=== PATIENT | male | born 1985 | race Asian ===

== ENCOUNTER 2023-12-10 23:52 | Inpatient (IN) | payer MEDICAID ==
[~2023-12-10] VITALS: Ht 177.8 cm; Wt 116.6 kg
[2023-12-10 20:00] VITALS: BP 125/68; TEMP 98.1; O2SAT 95
[2023-12-11] VITALS (8 sets, daily range): BP systolic 117–185; BP diastolic 102–132; TEMP 97.6–98.7; O2SAT 96–100
[2023-12-11] MEDS ORDERED: ONDANSETRON HCL/PF 4 MG/2 ML VIAL IVP PRN (02:30)
[2023-12-11] MEDS ORDERED: MAGNESIUM HYDROXIDE 30 ML UDC PO PRN (02:30)
[2023-12-11] MEDS ORDERED: MAG HYDROX/AL HYDROX/SIMETH 30 ML UDC PO PRN (02:30)
[2023-12-11] MEDS: NICOTINE PATCH (21MG) 21 MG PATCH.TD24 TD SCH (04:29)
[2023-12-11 06:53] LABS: INR 1.18 (0.91-1.10); PARTIAL THROMBOPLASTIN TIME 27.5 SEC (24.3-34.3); PROTHROMBIN TIME 12.4 SECS (9.2-11.1)
[2023-12-11 06:54] LABS: BASOPHILS # (AUTO) 0.2 K/uL (0.0-0.2); BASOPHILS % (AUTO) 2.2 % (0.0-2.0); EOSINOPHILS # (AUTO) 0.3 K/uL (0.0-0.7); EOSINOPHILS % (AUTO) 2.9 % (0.0-6.0); HEMATOCRIT 42 % (39-51); LYMPHOCYTES # (AUTO) 2.6 K/uL (0.8-4.8); LYMPHOCYTES % (AUTO) 26.7 % (20.0-44.0); MEAN CORPUSCULAR HEMOGLOBIN 31 PG (26.0-33.0); MEAN CORPUSCULAR HGB CONC 33 g/dl (31.0-36.0); MEAN CORPUSCULAR VOLUME 95 fL (80-96); MONOCYTES # (AUTO) 0.9 K/uL (0.1-1.30); MONOCYTES % (AUTO) 8.9 % (2.0-12.0); NEUTROPHILS # (AUTO) 5.7 K/uL (1.8-8.9); NEUTROPHILS % (AUTO) 59.3 % (43.0-81.0); PLATELET COUNT (AUTO) 281 K/uL (150-450); RED BLOOD CELL COUNT(AUTO) 4.46 MIL/uL (4.5-6.0); RED CELL DISTRIBUTION WIDTH 12.8 % (11.5-15.0); WHITE BLOOD COUNT (AUTO) 9.7 K/uL (4.3-11.0)
[2023-12-11 07:31] LABS: ALANINE AMINOTRANSFERASE 34 U/L (12-78); ALKALINE PHOSPHATASE 73 U/L (46-116); ASPARTATE AMINOTRANSFERASE 22 U/L (15-37); CALCIUM, SERUM 9.6 mg/dL (8.5-10.1); CARBON DIOXIDE 27 mmol/L (21-32); CHLORIDE 105 mmol/L (98-107); CREATININE 1.3 mg/dL (0.6-1.3); GLUCOSE 115 mg/dL (74-106); POTASSIUM 3.1 mmol/L (3.5-5.1); SODIUM SERUM 141 mmol/L (136-145); UREA NITROGEN, BLOOD 17 mg/dL (7-18)
[2023-12-11] MEDS: SPIRONOLACTONE 25 MG TABLET PO SCH (09:12)
[2023-12-11] MEDS: PANTOPRAZOLE 40 MG VIAL IV SCH (09:12)
[2023-12-11] MEDS: FUROSEMIDE 40 MG/4 ML VIAL IV SCH (09:12)
[2023-12-11] MEDS: POTASSIUM CHLORIDE 20 MEQ TAB.PRT.SR PO SCH (09:13)
[2023-12-11] MEDS: METOPROLOL TARTRATE 50 MG TABLET PO SCH (09:14)
[2023-12-11] MEDS: AMLODIPINE BESYLATE 10 MG TABLET PO SCH (09:14)
[2023-12-11] MEDS ORDERED: Z GUARD REMEDY 4 OZ OINT TP PRN (10:00)
[2023-12-11] MEDS: ZOLPIDEM TARTRATE 5 MG TABLET PO PRN (21:31)
[2023-12-12] VITALS (35 sets, daily range): BP systolic 101–163; BP diastolic 54–139; TEMP 97.5–98.9; O2SAT 91–100
[2023-12-12] MEDS: ALBUTEROL FS 2.5 MG/0.5 ML VIAL.NEB IH PRN (00:23)
[2023-12-12] MEDS: LORAZEPAM 0.5 MG TABLET PO ONE (03:11)
[2023-12-12 07:43] LABS: ABG BASE EXCESS -1.2 mmol/L (-2.0-3.0); ABG OXYGEN SATURATION 87.5 % (94.0-98.0); ABG PCO2 38.9 mmHg (35.0-48.0); ABG PH 7.397 (7.350-7.450); ABG PO2 56.1 mmHg (83.0-108.0); ABG TOTAL HEMOGLOBIN 16.4 G/dL (13.5-17.5); COHb 1.1 % (0.5-1.5); MetHb 0.2 % (0.0-1.5); O2Hb 86.4 % (94.0-97.0); SITE, ABG LEFT RADIAL
[2023-12-12] MEDS ORDERED: POTASSIUM CHLORIDE 20 MEQ TAB.PRT.SR PO SCH (09:00)
[2023-12-12 09:05] LABS: BASOPHILS # (AUTO) 0.1 K/uL (0.0-0.2); BASOPHILS % (AUTO) 0.7 % (0.0-2.0); EOSINOPHILS % (AUTO) 0.1 % (0.0-6.0); HEMATOCRIT 49 % (39-51); HEMOGLOBIN 15.6 g/dL (13.5-17.5); LYMPHOCYTES # (AUTO) 1.6 K/uL (0.8-4.8); LYMPHOCYTES % (AUTO) 10.7 % (20.0-44.0); MEAN CORPUSCULAR HEMOGLOBIN 31 PG (26.0-33.0); MEAN CORPUSCULAR HGB CONC 32 g/dl (31.0-36.0); MEAN CORPUSCULAR VOLUME 96 fL (80-96); MONOCYTES # (AUTO) 1.5 K/uL (0.1-1.30); MONOCYTES % (AUTO) 9.9 % (2.0-12.0); NEUTROPHILS # (AUTO) 11.5 K/uL (1.8-8.9); NEUTROPHILS % (AUTO) 78.6 % (43.0-81.0); PLATELET COUNT (AUTO) 246 K/uL (150-450); RED BLOOD CELL COUNT(AUTO) 5.05 MIL/uL (4.5-6.0); RED CELL DISTRIBUTION WIDTH 13.4 % (11.5-15.0); WHITE BLOOD COUNT (AUTO) 14.6 K/uL (4.3-11.0)
[2023-12-12 09:18] LABS: BILIRUBIN,TOTAL 1.6 mg/dL (0.2-1.0); CALCIUM, SERUM 9.2 mg/dL (8.5-10.1); CREATININE 1.8 mg/dL (0.6-1.3); MAGNESIUM 1.9 mg/dL (1.8-2.4); PHOSPHORUS 6.1 mg/dL (2.5-4.9); TOTAL PROTEIN, SERUM 7.9 g/dL (6.4-8.2)
[2023-12-12] MEDS: FUROSEMIDE 40 MG/4 ML VIAL IV SCH (10:10)
[2023-12-12] MEDS: CLONIDINE HCL 0.1MG/24H PTWK 1 EA PATCH TD SCH (12:46)
[2023-12-12] MEDS: VALSARTAN 80 MG TABLET PO SCH (13:00)
[2023-12-12] MEDS: PANTOPRAZOLE 40 MG TABLET.DR PO SCH (13:00)
[2023-12-12 15:36] LABS: ALBUMIN 3.9 g/dL (3.4-5.0); BILIRUBIN,TOTAL 1.6 mg/dL (0.2-1.0); CALCIUM, SERUM 8.9 mg/dL (8.5-10.1); POTASSIUM 4.7 mmol/L (3.5-5.1); TOTAL PROTEIN, SERUM 7.8 g/dL (6.4-8.2)
[2023-12-13] VITALS (31 sets, daily range): BP systolic 106–154; BP diastolic 72–123; TEMP 96.4–98.4; O2SAT 88–100
[2023-12-13 04:55] LABS: BASOPHILS # (AUTO) 0.1 K/uL (0.0-0.2); BASOPHILS % (AUTO) 0.7 % (0.0-2.0); EOSINOPHILS # (AUTO) 0.1 K/uL (0.0-0.7); EOSINOPHILS % (AUTO) 0.9 % (0.0-6.0); HEMATOCRIT 45 % (39-51); HEMOGLOBIN 14.6 g/dL (13.5-17.5); LYMPHOCYTES # (AUTO) 4.2 K/uL (0.8-4.8); LYMPHOCYTES % (AUTO) 25.4 % (20.0-44.0); MEAN CORPUSCULAR HEMOGLOBIN 31 PG (26.0-33.0); MEAN CORPUSCULAR HGB CONC 32 g/dl (31.0-36.0); MEAN CORPUSCULAR VOLUME 96 fL (80-96); MONOCYTES # (AUTO) 1.8 K/uL (0.1-1.30); MONOCYTES % (AUTO) 11.3 % (2.0-12.0); NEUTROPHILS # (AUTO) 10.1 K/uL (1.8-8.9); NEUTROPHILS % (AUTO) 61.7 % (43.0-81.0); PLATELET COUNT (AUTO) 257 K/uL (150-450); RED BLOOD CELL COUNT(AUTO) 4.68 MIL/uL (4.5-6.0); WHITE BLOOD COUNT (AUTO) 16.4 K/uL (4.3-11.0)
[2023-12-13 05:20] LABS: ALBUMIN 3.6 g/dL (3.4-5.0); BILIRUBIN,TOTAL 1.7 mg/dL (0.2-1.0); CALCIUM, SERUM 8.4 mg/dL (8.5-10.1); CREATININE 2.1 mg/dL (0.6-1.3); MAGNESIUM 2.1 mg/dL (1.8-2.4); PHOSPHORUS 6.2 mg/dL (2.5-4.9); POTASSIUM 4.1 mmol/L (3.5-5.1); TOTAL PROTEIN, SERUM 7.4 g/dL (6.4-8.2)
[2023-12-13] MEDS: LACTULOSE 10 G/15 ML UDC (PYXIS) PO SCH (08:34)
[2023-12-13] MEDS: FUROSEMIDE 100 MG/10 ML VIAL IV SCH (08:34)
[2023-12-13] MEDS: POTASSIUM CHLORIDE 20 MEQ TAB.PRT.SR PO SCH (08:34)
[2023-12-13] MEDS: ZOSYN IVPB 3.375 G in IV D5W 50ml IV SCH (11:44)
[2023-12-13] MEDS ORDERED: PIPERACILLIN /TAZOBACTAM 2.25 G in IV D5W 50 ML IV SCH (12:00)
[2023-12-13 15:42] LABS: CREATININE, URINE 20.2 MG/DL (30.0-125.0); URINE TOTAL PROTEIN 3.9 mg/dL (0-11.9)
[2023-12-13 16:00] LABS: ABG BASE EXCESS 4.6 mmol/L (-2.0-3.0); ABG PCO2 57.1 mmHg (35.0-48.0); ABG PH 7.363 (7.350-7.450); ABG PO2 83.6 mmHg (83.0-108.0); ABG TOTAL HEMOGLOBIN 15.6 G/dL (13.5-17.5); MetHb 0.2 % (0.0-1.5); O2Hb 93.9 % (94.0-97.0); SITE, ABG RIGHT RADIAL
[2023-12-14] VITALS (16 sets, daily range): BP systolic 100–175; BP diastolic 59–126; TEMP 96.5–98.6; O2SAT 92–99
[2023-12-14 04:57] LABS: BASOPHILS # (AUTO) 0.2 K/uL (0.0-0.2); BASOPHILS % (AUTO) 1.3 % (0.0-2.0); EOSINOPHILS # (AUTO) 0.2 K/uL (0.0-0.7); EOSINOPHILS % (AUTO) 1.6 % (0.0-6.0); HEMATOCRIT 42 % (39-51); HEMOGLOBIN 13.8 g/dL (13.5-17.5); LYMPHOCYTES # (AUTO) 2.3 K/uL (0.8-4.8); LYMPHOCYTES % (AUTO) 18.1 % (20.0-44.0); MEAN CORPUSCULAR HEMOGLOBIN 31 PG (26.0-33.0); MEAN CORPUSCULAR HGB CONC 33 g/dl (31.0-36.0); MEAN CORPUSCULAR VOLUME 96 fL (80-96); MONOCYTES # (AUTO) 1.2 K/uL (0.1-1.30); MONOCYTES % (AUTO) 9.1 % (2.0-12.0); NEUTROPHILS # (AUTO) 8.8 K/uL (1.8-8.9); NEUTROPHILS % (AUTO) 69.9 % (43.0-81.0); PLATELET COUNT (AUTO) 267 K/uL (150-450); RED BLOOD CELL COUNT(AUTO) 4.42 MIL/uL (4.5-6.0); RED CELL DISTRIBUTION WIDTH 13.1 % (11.5-15.0); WHITE BLOOD COUNT (AUTO) 12.6 K/uL (4.3-11.0)
[2023-12-14 05:25] LABS: ALBUMIN 3.7 g/dL (3.4-5.0); BILIRUBIN,TOTAL 1.4 mg/dL (0.2-1.0); CALCIUM, SERUM 8.9 mg/dL (8.5-10.1); CREATININE 1.3 mg/dL (0.6-1.3); PHOSPHORUS 3.2 mg/dL (2.5-4.9); POTASSIUM 3.5 mmol/L (3.5-5.1); TOTAL PROTEIN, SERUM 7.5 g/dL (6.4-8.2)
[2023-12-14] MEDS: hydrALAZINE HCL 50 MG TABLET PO SCH (08:10)
[2023-12-14] MEDS: NITROGLYCERIN 30 GM TUBE TP SCH (08:41)
[2023-12-14] MEDS: LACTULOSE 20 G/30 ML UDC PO SCH (12:45)
[2023-12-14] MEDS: ACETAMINOPHEN 325 MG TABLET PO PRN (20:19)
[2023-12-15] VITALS: BP 108/65; TEMP 98.6; O2SAT 98
[2023-12-15 04:00] VITALS: BP 107/79; TEMP 97.7; O2SAT 96
[2023-12-15 06:06] LABS: PTH, INTACT 41 pg/mL (15-65)
[2023-12-15 08:00] VITALS: BP 124/87; TEMP 97.9; O2SAT 98
[2023-12-15 12:00] VITALS: BP 111/78; TEMP 97.6; O2SAT 99
[2023-12-15] MEDS: PIPERACILLIN /TAZOBACTAM 3.375 G in IV D5W 100 ML IV SCH (12:32)
[2023-12-15] MEDS ORDERED: METO50TA16 PO (15:37)
[2023-12-15] MEDS ORDERED: NICO-762 TD (15:37)
[2023-12-15] MEDS ORDERED: AMLO-213 PO (15:37)
[2023-12-15] MEDS ORDERED: LACT20SO4 PO (15:37)
[2023-12-15] MEDS ORDERED: HYDR-4077 PO (15:37)
[2023-12-15] MEDS ORDERED: SPIR25TA6 PO (15:37)
[2023-12-15 16:00] VITALS: BP 121/79; TEMP 97.8; O2SAT 99
[2023-12-18 09:11] LABS: *SPE ALBUMIN 3.4 g/dL (2.9-4.4); *SPE ALPHA-1-GLOBULIN 0.3 g/dL (0.0-0.4); *SPE ALPHA-2-GLOBULIN 0.7 g/dL (0.4-1.0); *SPE BETA GLOBULIN 1.2 g/dL (0.7-1.3); *SPE GLOBULIN, TOTAL 3.4 g/dL (2.2-3.9); *SPE M-SPIKE Not Observed g/dL (Not Observed); *SPE PROTEIN TOTAL 6.8 g/dL (6.0-8.5); *SPEGAMMA GLOBULIN 1.2 g/dL (0.4-1.8)
== END 2023-12-15 16:40 | disposition home or self-care (01) | DRG 280 ==
LOC: TELE 12-11 02:16 → ICU 12-12 08:07 → TELE1 12-14 11:48
PROVIDERS: ADMIT Internal Medicine; ATTEND Internal Medicine
DX: K76.82 Hepatic encephalopathy (principal); K70.9 Alcoholic liver disease, unspecified; J96.01 Acute respiratory failure with hypoxia; J69.0 Pneumonitis due to inhalation of food and vomit; I50.23 Acute on chronic systolic (congestive) heart failure; G93.1 Anoxic brain damage, not elsewhere classified; I21.A1 Myocardial infarction type 2; N17.9 Acute kidney failure, unspecified; I42.0 Dilated cardiomyopathy; R18.8 Other ascites; I11.0 Hypertensive heart disease with heart failure; K74.60 Unspecified cirrhosis of liver; K76.6 Portal hypertension; E66.01 Morbid (severe) obesity due to excess calories; Z68.38 Body mass index [BMI] 38.0-38.9, adult; I25.10 Atherosclerotic heart disease of native coronary artery without angina pectoris; M89.8X9 Other specified disorders of bone, unspecified site; Z87.891 Personal history of nicotine dependence; F10.10 Alcohol abuse, uncomplicated; Y90.9 Presence of alcohol in blood, level not specified; F19.11 Other psychoactive substance abuse, in remission; Z91.148 Patient's other noncompliance with medication regimen for other reason; R74.01 Elevation of levels of liver transaminase levels; G47.33 Obstructive sleep apnea (adult) (pediatric)
CPT/HCPCS: 36415; 36600; 71045-TC; 76705-TC; 76770-TC; 80053-TC; 82140-TC; 82550-TC; 82570-TC; 82803-TC; 83735-TC; 83970; 84100-TC; 84155; 84165; 84300-TC; 84484-TC; 85025-TC; 85730-TC; 93307-TC; 94762-TC; 94799-TC; 98960; A4223; G0378; J1940; J2470; J2543; J7050; J7060